=== PATIENT | male | born 1990 | race Caucasian/White ===

== ENCOUNTER 2021-04-11 02:01 | Emergency (ER) | payer BC ==
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
[2021-04-11] MEDS ORDERED: NORCO 5/325 MG PO ONE (03:57)
[2021-04-11] MEDS ORDERED: NORCO 5/325 MG ONE (03:59)
[2021-04-11 04:21] VITALS: BP 120/94; PULSE 95; O2SAT 98
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
== END 2021-04-11 04:12 | disposition home or self-care (01) ==
LOC: ED 02:01
DX: S22.31XA Fracture of one rib, right side, initial encounter for closed fracture (principal); S02.2XXA Fracture of nasal bones, initial encounter for closed fracture; Y04.0XXA Assault by unarmed brawl or fight, initial encounter; Y93.89 Activity, other specified; Y92.149 Unspecified place in prison as the place of occurrence of the external cause; Y99.0 Civilian activity done for income or pay; S00.03XA Contusion of scalp, initial encounter; S10.93XA Contusion of unspecified part of neck, initial encounter
CPT/HCPCS: 70450; 70486; 71100; 99283; A9270-GY

== ENCOUNTER 2023-11-18 12:53 | Emergency (ER) | payer BC ==
[2023-11-18 13:52] VITALS: PULSE 85; TEMP 97.8
[2023-11-18 14:39] LABS: Erythrocyte Sedimentation Rate 6 mm/hr (0-15)
[2023-11-18 14:41] LABS: BASOPHIL % 0.4 % (0.0-0.4); Basophil (Absolute #) 0.05 x10^3/uL (0-0.4); Eosinophil % 1.1 % (0.00-5.0); Eosinophil (Absolute #) 0.14 x10^3/uL (0-0.5); Hematocrit 46.1 % (42-50); Hemoglobin 14.4 g/dL (12.5-18.0); IMMATURE GRAN # 0.04 x10^3u/L (0.00-0.03); IMMATURE GRAN % 0.3 % (0.00-0.4); Lymphocyte (Absolute #) 1.78 x10^3/uL (1.0-4.6); Lymphocytes % 14.2 % (24.0-44.0); Mean Corpuscular Hemoglobin 25.3 pg (26-32); Mean Corpuscular Hgb Concent. 31.2 g/dL (32-36); Mean Platelet Volume 9.8 fL (7.5-11.0); Monocyte (Absolute #) 1.01 x10^3/uL (0.0-1.3); Monocytes % 8.1 % (0.0-12.0); Neutrophil % 75.9 % (36.0-66.0); Platelet Count 329 x10^3/uL (150-450); Red Blood Count 5.69 x10^6/uL (4.1-5.6); Red Cell Distribution Width 13.4 % (11.5-14.0); White Blood Count 12.5 x10^3/uL (4.0-10.5)
[2023-11-18 14:42] LABS: ALBUMIN 4.5 g/dL (3.5-5.0); ANION GAP 15.3 MEQ/L (5-15); BILIRUBIN,TOTAL 0.2 mg/dL (0.2-1.3); Calcium 9.1 mg/dL (8.4-10.2); Creatinine 1 0.78 mg/dL (0.66-1.25); EST GLOMERULAR FILTRATION RATE 120.8 ML/MIN; Total Protein 7.5 g/dL (6.3-8.2)
[2023-11-18 16:12] VITALS: BP 164/99; O2SAT 99
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
[2023-11-18] MEDS ORDERED: TORAdol 10 MG TABLET ONE (16:30)
[2023-11-18] MEDS: TORAdol 10 MG TABLET PO SCH (16:34)
--- NOTE | 2023-11-18 20:43 | XRAY ---
Indication: Pain. Comparison: None 3 view right shoulder demonstrates 1.4 cm well-circumscribed curvilinear ossification lateral to humeral head probably tendinous in etiology and sequela to old injury/inflammation. No other bony, articular, or soft tissue abnormalities.
== END 2023-11-18 16:41 | disposition home or self-care (01) ==
LOC: ED 12:53
DX: S43.401A Unspecified sprain of right shoulder joint, initial encounter (principal); Z72.0 Tobacco use
CPT/HCPCS: 36415; 73030; 80053; 85025; 85652; 99283; A9270-GY

== ENCOUNTER 2024-12-26 17:27 | Emergency (ER) | payer BC ==
[2024-12-26 17:42] VITALS: RESP 18; TEMP 97.8
[2024-12-26 18:18] VITALS: PULSE 68; O2SAT 98
[2024-12-26] MEDS ORDERED: Augmentin 875-125 Tablet ONE (18:36)
[2024-12-26] MEDS ORDERED: Adacel Vial IM ONE (18:37)
[2024-12-26] MEDS: Augmentin 875-125 Tablet PO ONE (18:38)
[2024-12-26] MEDS: Adacel Vial IM ONE (18:38)
--- NOTE | 2024-12-26 18:39 | ERPHSYRPT ---
- History of Present Illness Time Seen by Provider: 12/26/24 17:33 Source: patient Exam Limitations: no limitations Patient Subjective Stated Complaint: Dog bite to left forearm. 2 punctures on top of left forearm and one larger one on the bottom Triage Nursing Assessment: Patient presents with dog bite to left forearm. States was trying to break up his larger dogs from fighting with each other when he got bit. Has two small punctures to top of left forearm and one larger one on the bottom of left forearm. Bleeding controlled at this time. Patient states unknown if tetanus shot up to date. Physician History: 34-year-old right-handed dominant male presented in the ER with complaint of dog bite of the left forearm when he tried to separate dog fight at home. Patient has a small abrasion on the finger but laceration on the forearm dorsal and volar aspect. Mild pain with palpation. No numbness tingling or weakness of the fingers. Patient unsure about tetanus status. Dogs are immunized. Allergies/Adverse Reactions: No Known Drug Allergies Allergy (Verified 12/26/24 17:42) Hx Tetanus, Diphtheria Vaccination/Date Given: No (unsure) Hx Influenza Vaccination/Date Given: No Hx Pneumococcal Vaccination/Date Given: No Immunizations Up to Date: Yes Travel Risk - International Travel Have you traveled outside of the country in past 3 weeks: No - Emerging Infectious Disease Are you exhibiting symptoms associated with any current EIDs: No - Review of Systems Constitutional: No Symptoms Ears, Nose, & Throat: No Symptoms Respiratory: No Symptoms Cardiac: No Symptoms Musculoskeletal: Injury Skin: Skin Lesions Endocrine: No Symptoms - Past Medical History Pertinent Past Medical History: No Neurological History: No Pertinent History ENT History: No Pertinent History Cardiac History: No Pertinent History Respiratory History: No Pertinent History Endocrine Medical History: No Pertinent History Musculoskeletal History: No Pertinent History GI Medical History: No Pertinent History History: No Pertinent History Psycho-Social History: No Pertinent History - Past Surgical History Past Surgical History: No Neuro Surgical History: No Pertinent History Cardiac: No Pertinent History Respiratory: No Pertinent History Gastrointestinal: No Pertinent History Genitourinary: No Pertinent History Musculoskeletal: No Pertinent History Male Surgical History: No Pertinent History - Social History Smoking Status: Current every day smoker How long have you smoked: 10yrs Exposure to second hand smoke: Yes Drug Use: none - Social Determinants of Health Will the patient participate in the screening: Yes Do you worry about a steady place to live?: No Do you have any problems with any of the following?: No known problems In the past 12 months,have you had to go without utilities?: No Transportation Issues: No Has anyone in your support network made you feel unsafe?: No Have you or anyone in your house had to go w/o enough food: No - Nursing Vital Signs Nursing Vital Signs: Initial Vital Signs Temperature 97.8 F 12/26/24 17:28 Pulse Rate 112 H 12/26/24 17:28 Respiratory Rate 18 12/26/24 17:28 Blood Pressure 130/86 12/26/24 17:28 O2 Sat by Pulse Oximetry 99 12/26/24 17:28 Pain Scale Pain Intensity 0 - Physical Exam General Appearance: no apparent distress Eye Exam: PERRL/EOMI Neck Exam: normal inspection Respiratory Exam: normal breath sounds, lungs clear Cardiovascular Exam: regular rate/rhythm, normal heart sounds Extremity Exam: lacerations (3 cm laceration ventral aspect left forearm with no active spurting, minimal oozing. 0.5 cm x 2 lacerations on the dorsal aspect of forearm. Minimal oozing. Distal neurovascular intact), tenderness Neurologic Exam: alert, oriented x 3, cooperative Skin Exam: laceration SpO2 Interpretation: normal SpO2: 98 O2 Delivery: Room Air Procedures - Laceration/Wound Repair Left Arm Time of Procedure: 18:38 Wound Location: Left, lower arm Wound Length (cm): 4 Wound's Depth, Shape: into muscle, linear Wound Explored: clean Irrigated: Yes Hibiclens Prep: Yes Anesthesia: 1% lidocaine w/ Epi Volume Anesthetic (ccs): 3 Wound Debrided: minimal Wound Repaired With: sutures Suture Size/Type: 4-0, ethilon Number of Sutures: 6 Sterile Dressing Applied?: Yes - Progress Progress: improved Progress Note: 12/26/24 18:39 34-year-old right-handed dominant male is evaluated in the ER for dog bite on the left forearm dorsal and ventral aspect. Does not immunize, patient's tetanus status is updated. Loosely approximated wound with laceration repairs. Started on Augmentin. Discussed signs symptoms of infection needing return to ER which he seems understanding. Also discussed about dogs observation for next 2 weeks. Stable for discharge. Complexity of problems addressed: Moderate acute Complexity of data reviewed/analyzed: Minimal Risk of complication: Moderate Counseled pt/family regarding: diagnosis, need for follow-up Medical Desision Making - Risk of complications The pt has a mod risk of morbidity or mortality based on: Need for prescription drug management, Need for minor surgical intervention in patient with know risk factors - Departure Departure Disposition: Home Clinical Impression: Dog bite of forearm Condition: Stable Critical Care Time: No Referrals: DOCTOR,NO FAMILY [Primary Care Provider, UNKNOWN] - Follow up with PCP 1 day Instructions: Animal Bites (DC) Additional Instructions: Take Tylenol/ibuprofen as needed. Intermittent ice application. Follow-up with primary care for reevaluation. Return to ER for increasing pain swelling redness discharge or if develop fever chills etc. Prescriptions: Amox Tr/Potass Clav. 875 mg [Augmentin 875-125 Tablet] 875 mg PO BID #14 tablet
[2024-12-26 18:50] VITALS: BP 109/78
== END 2024-12-26 18:53 | disposition home or self-care (01) ==
LOC: ED 17:27
DX: S51.852A Open bite of left forearm, initial encounter (principal); W54.0XXA Bitten by dog, initial encounter; Z79.899 Other long term (current) drug therapy; Z72.0 Tobacco use; Z23 Encounter for immunization
CPT/HCPCS: 12002; 90471; 90715; 99282; 99283; A9270-GY